=== PATIENT | male | born 1990 | race Caucasian/White ===

== ENCOUNTER → 2018-02-08 08:04 | Outpatient (CLI) | payer OTHER, SELFPAY ==
--- NOTE | 2018-02-08 | DI.MRI.S_ITS ---
PROCEDURE: MR SHOULDER RT W CON INDICATIONS: Right shoulder bankart tear TECHNIQUE: After the administration of 12 mL of dilute intra-articular Gadolinium contrast, oblique coronal T1 and T2 spin echo with fat saturation, oblique sagittal T1 spin echo with and without fat saturation, oblique sagittal T2 fast spin echo with fat saturation, axial T1 spin echo with fat saturation through the shoulder. COMPARISON: None. FINDINGS: Image quality: Diagnostic. Rotator cuff: There is no full-thickness high-grade partial-thickness tear of the rotator cuff. There is moderate infraspinatus tendinopathy with intrasubstance low-grade partial-thickness tearing. This is best appreciated at its insertion. The supraspinatus, subscapularis, and teres minor tendons are intact. There is no significant atrophy of the rotator cuff muscles. Bones and bursae: There is no acute fracture, dislocation, or suspicious osseous lesion involving the osseous structures of the right shoulder. Postoperative changes of the anterior glenoid are present, suggesting prior labral repair. There is adequate distention of the glenohumeral joint with injected contrast. No loose intra-articular joint bodies are appreciated. No significant degenerative changes of the acromioclavicular joint are present. No fluid is contained within the subacromial subdeltoid bursa. Capsule and soft tissues: Postsurgical changes of the anterior labrum are evident. No normal labral tissue is seen along the entire length of the anterior labrum, which is noted to be blunted. There may be a small posterosuperior labral tear extending from the 12 o'clock position to the 1 to 2 o'clock position. No detached labral fragments or apparent labral cysts are evident. The long head of the biceps tendon is normally positioned within the bicipital groove. However, there is increased signal and thickening involving the intra-articular portion of this tendon. The superior, middle, and inferior glenohumeral ligaments are intact. IMPRESSION: 1. Postoperative changes related to an anterior labral repair with blunting and irregularity of the anterior labrum. This may be postoperative. Clinical correlation is recommended. No detached labral fragments are identified. 2. Mild tendinopathy involving the long head of biceps tendon. 3. Low-grade intrasubstance partial thickness tearing and moderate tendinopathy of the infraspinatus tendon. Dictated by: Santiago Joaquin M.D. on 02/08/2018 at 9:54 Approved by: Santiago Joaquin M.D. on 02/08/2018 at 9:58
--- NOTE | 2018-02-08 | DI.RAD.S_ITS ---
PROCEDURE: FL SHOULDER INJECTION MR/CT RT INDICATIONS: Right shoulder bankart tear, left shoulder pain TECHNIQUE: The indications, alternatives, benefits, risks, and complications of the procedure were explained to the patient. Written informed consent was obtained and placed in the chart. The shoulder was examined fluoroscopically and a site for needle placement chosen for entry into the glenohumeral joint from an anterior approach. The skin was prepped and draped in a sterile fashion, and 1% lidocaine infiltrated from skin down to joint capsule. A spinal needle was inserted into the glenohumeral joint, and a small amount of iodinated contrast media injected to confirm intra-articular placement of the needle tip. This was followed by approximately 12 mL dilute solution of a gadolinium containing MR contrast agent. The needle was removed and a dressing was applied. The patient was given postprocedural instructions and sent to the MR suite for MR imaging. FINDINGS: A single fluoroscopic spot image demonstrates intra-articular location of injected iodinated contrast. IMPRESSION: Successful fluoroscopically guided administration of dilute Gadolinium solution into the shoulder joint for MR arthrogram. Dictated by: Live Suárez M.D. on 02/08/2018 at 9:49 Approved by: Live Suárez M.D. on 02/08/2018 at 9:49
--- NOTE | 2018-02-08 | DI.MRI.S_ITS ---
PROCEDURE: MR SHOULDER LT WO CON INDICATIONS: Right shoulder bankart tear, left shoulder pain TECHNIQUE: Noncontrast oblique coronal T2 fast spin echo with fat saturation, oblique sagittal T1 spin echo and T2 fast spin echo with fat saturation, axial T1 spin echo and T2 fast spin echo with fat saturation through the shoulder. COMPARISON: None. FINDINGS: Image quality: Excellent. Rotator cuff: There is no full-thickness or high-grade partial-thickness tear of the rotator cuff. There is mild supraspinatus tendinopathy without significant partial-thickness tear. Infraspinatus, subscapularis, and teres minor tendons are intact. There is no significant atrophy of the rotator cuff muscles. Bones and bursae: No bone marrow contusions or fractures. No acromioclavicular joint degeneration. The acromion demonstrates conventional anatomy, without an os acromiale. No pathologic subacromial-subdeltoid or subcoracoid bursal fluid is present. The morphology of the glenoid is within normal limits. No bony Bankhart injury is evident. No definite Hill-Sachs deformity of the humeral head is appreciated. Capsule and soft tissues: Evaluation of the labrum and the glenohumeral ligaments is difficult without intra-articular contrast. Increasing left labral cartilaginous junction appears to be present extending along the entire length of the anterior labrum from the 12 o'clock position to the 6 o'clock position. Additional increased signal is noted to extend along the posterosuperior labrum to approximately the 1 to 2 o'clock position. No detached labral fragments are appreciated. No large paralabral cysts are evident. No acute injuries involving the glenohumeral ligaments are suspected. The lung head of the biceps tendon is normally positioned within the bicipital groove and is otherwise unremarkable. IMPRESSION: 1. Mild supraspinatus tendinopathy. 2. Anterior labral tearing is not well characterized, but is compatible with the patient's history of a soft tissue Bankart injury. The need for better characterization utilizing MR arthrography may be determined clinically. Dictated by: Santiago Joaquin M.D. on 02/08/2018 at 9:14 Approved by: Santiago Joaquin M.D. on 02/08/2018 at 9:53
== END ==
PROVIDERS: Visit Provider Family Medicine
DX: M24.412 Recurrent dislocation, left shoulder (principal); S46.111A Strain of muscle, fascia and tendon of long head of biceps, right arm, initial encounter
CPT/HCPCS: 23350; 73221; 73222; 77002